=== PATIENT | male | born 1955 | race African-American/Black ===

== ENCOUNTER 2018-03-25 16:04 | Outpatient (CLI) | payer MEDICARE ==
--- NOTE | 2018-03-25 17:09 | RAD ---
LEFT HAND THREE VIEWS: 03/25/18 HISTORY: 62-year-old male with history of pain and swelling for one week. There is some diffuse soft tissue swelling dorsally over the wrist and hand. Irregular small metal fo reign body noted in the soft tissues overlying the first metacarpal. 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 There is some slight trabecular irregularity in the distal fifth metacarpal which I favor to be just a variation in trabeculation; however, if the patient has trauma to this region and it is focally tender, it would be difficult to totally exclude the possibility of a hairline nondisplaced fracture. 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 Irregular small f oreign body in the volar soft tissues at the level of the first metacarpal. POS: OFF
== END 2018-03-25 16:05 | disposition home or self-care (01) ==
LOC: MADRAD 16:04
PROVIDERS: ATTEND Family Medicine
DX: M79.89 Other specified soft tissue disorders (principal); S60.552A Superficial foreign body of left hand, initial encounter; M19.042 Primary osteoarthritis, left hand; M19.032 Primary osteoarthritis, left wrist

== ENCOUNTER 2018-08-30 01:25 | Emergency (ER) | payer MEDICARE | END 2018-08-30 02:07 | disposition home or self-care (01) | LOC: MADERS 01:25 | DX: I10 Essential (primary) hypertension (principal); E78.5 Hyperlipidemia, unspecified; F32.9 Major depressive disorder, single episode, unspecified; F17.210 Nicotine dependence, cigarettes, uncomplicated; Z79.899 Other long term (current) drug therapy | CPT/HCPCS: 99283 ==

== ENCOUNTER 2021-03-02 01:02 | Emergency (ER) | payer MEDICARE, OTHER ==
[2021-03-02] MEDS ORDERED: Morphine 4 MG/ML VIAL ONE (02:11)
[2021-03-02] MEDS ORDERED: predniSONE 20 MG TAB ONE (02:22)
[2021-03-02] MEDS ORDERED: Ibuprofen 800 MG TAB ONE (02:22)
[2021-03-02] MEDS ORDERED: predniSONE 10 MG TAB ONE (02:22)
== END 2021-03-02 02:43 | disposition home or self-care (01) ==
LOC: MADERS 01:02
DX: M79.89 Other specified soft tissue disorders (principal); I10 Essential (primary) hypertension; E78.5 Hyperlipidemia, unspecified; Z87.891 Personal history of nicotine dependence; Z79.899 Other long term (current) drug therapy
CPT/HCPCS: 96372; J2270; J7512

== ENCOUNTER 2021-04-10 12:42 | Outpatient (CLI) | payer OTHER | END 2021-04-10 12:43 | disposition home or self-care (01) | LOC: MADRAD 12:42 | PROVIDERS: ATTEND Family Medicine | DX: M16.12 Unilateral primary osteoarthritis, left hip (principal) ==

== ENCOUNTER 2021-07-17 14:23 | Outpatient (CLI) | payer OTHER | END 2021-07-17 14:24 | disposition home or self-care (01) | LOC: MADLAB 14:23 → MADRAD 14:24 | PROVIDERS: ATTEND Family Medicine | DX: M79.641 Pain in right hand (principal); M25.441 Effusion, right hand; M79.89 Other specified soft tissue disorders ==